=== PATIENT | female | born 2000 | race Caucasian/White ===

== ENCOUNTER 2024-05-31 19:54 | Emergency (ER) | payer SELFPAY ==
--- OUTSIDE RECORDS SUMMARY | 2024-05-31 19:56 | XMS_ITS | Continuity of Care Document ---
Author Name [facility] Organization [facility] Care Team Providers Care Tax Evaluator Name Role Phone [facility] Unavailable Unavailable Problems Combined list of problems from Department of Defense and Veterans Affairs facilities. It does not include entries that were removed or entered in error. 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 DoD shortness of breath Active Condition Do D visit for: administrative purpose Inactive Condition DoD dysphagia Active Condition DoD nausea Inactive Condition DoD constipation Inactive Condition DoD other specified viral disease Inactive Condition DoD visit for: examination of subpopulation Active Condition DoD Need For Vaccination Chickenpox (Active) Active Condition DoD Need For Vaccination Hepatitis A Active Condition DoD New Patient Age 5-11 School / Camp Physical Active Condition DoD Need For Vaccination Against Influenza Active Condition DoD dermatitis Inactive Condition probably due to exposure both hands. eucerin 1% H/C cream ud DoD Medications Combined list of outpatient medications from Department of Defense and Veterans Affairs facilities.Medications provided include 1) outpatient medications from the last 15 months, and 2) patient-reported medications. Medication Details Route Status Patient Instructions Prescription Expires Prescription Number Last Dispense Date Ordering Provider Order Date Order Qty Source FLUoxetine 10 mg oral capsule FLUoxeti ne 10 mg oral capsule Start Date: 07/15/19 Status: Ordered Ordered No Facilit y Access methocarbam ol 500 mg oral tablet methocar bamol 500 mg oral tablet Start Date: 05/06/19 Status: Ordered Ordered No Facilit y Access Allergies, Adverse Reactions, Alerts Combined list of allergies from Department of Defense and Veterans Affairs facilities. It does not include entries that were removed or entered in error. Substance Category Reaction Severity Reaction type Status Date Reported Comments Source No Known Allergies Drug allergy (disorder) active 08/28/2007 April COVARRUBIAS Immunizations Combined list of available immunizations from the Department of Defense and Veterans Affairs facilities. 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 Source Hep A, ped/adol, 2 dose 2011 zzLef t Arm [id number] GlaxoSmithKli ne complet ed Hep A, ped/adol, 2 dose 01/05/12 Given Ambulat ory Pharmac y hepatitis A vaccine, pediatric/ado lescent dosage, 2 dose schedule 2 2011 MARIA DE JESUS MOSCOSO [id number] 83 Smithine (SKB) complet ed hepatitis A vaccine, pediatric /adolesce nt dosage, 2 dose schedule DoD tuberculin purified protein derivative 2011 zzLef t Arm [id number] sanofi pasteur complet ed Patient Tolerance : Negative Ambulat ory Pharmac y tuberculin skin test; purified protein derivative solution, intradermal 0 2011 MONICA THOMASIE [id number] Sanofi Pasteur ([facility]) complet ed tuberculi n skin test; purified protein derivativ e solution, intraderm al DoD Hep A, ped/adol, 2 dose 2008 zzLef t Arm [id number] 83 GlaxoSmithKli ne complet ed Hep A, ped/adol, 2 dose 05/16/09 Given Ambulat ory Pharmac y varicella virus vaccine 2008 zzLef t Arm [id number] Merck [employer] Inc complet ed varicella virus vaccine 05/16/09 Given Ambulat ory Pharmac y varicella virus vaccine 1 2008 REBECCA BUSTOS [id number] 21 Merck (MSD) complet ed varicella virus vaccine DoD hepatitis A vaccine, pediatric/ado lescent dosage, 2 dose schedule 1 2008 REBECCA BUSTOS [id number] 83 Smithine (SKB) complet ed hepatitis A vaccine, pediatric /adolesce nt dosage, 2 dose schedule DoD influenza virus vaccine,split 2006 zzLef t Arm [id number] 15 sanofi pasteur complet ed influenza virus vaccine,s plit 06/12/06 Given Ambulat ory Pharmac y influenza virus vaccine, split virus (incl. purified surface antigen)-reti red CODE 1 2006 Unknown, Provider [id number] 15 Sanofi Pasteur ([facility]) complet ed influenza virus vaccine, split virus (incl. purified surface antigen)- retired CODE DoD influenza virus vaccine, live 2005 [id number] A [employer] comple t ed influenza virus vaccine, live 05/07/06 Given Ambulat ory Pharmac y influenza virus vaccine, live, attenuated, for intranasal use 1 2005 Unknown, Provider [id number] [facility] ([facility] complet ed influenza virus vaccine, live, attenuate d, for intranasa l use [facility] Vital Signs Combined list of inpatient and outpatient Vital Signs from Department of Defense and Veterans Affairs, ranging from 12 months to all on record, depending upon the facility. Vital Sign Value Date Comments Source No data available for this section Ambulatory Pharmacy Encounters Combined list of: 1) Encounters from Department of Veterans Affairs facilities going back up to thelast 18 months. 2) Encounters from the Department of Defense facilities going back up to 280 months. Location Location Details Encounter Type Encounter Number Reason For Visit Attending Provider ADM Date DC Date Status Disposition Source [facility] [place]IENT [id number] some type of rash or somethi ng on both hands (only) JESSE ALONZO 05/04 Released w/o Limitations [facility] [place] [place]) [facility] [id number] [facility] [place] [place]) [facility] [id number] [facility] Limitations [facility] [place] [place] [place]Pediat alex [facility] OUTPATIENT [id number] BEBA Dickerson MD 05/16 Released w/o Limitations [facility] [place] ) [facility] [place] OUTPATIENT [id number] [facility] JARROD Carter 05/29 Released w/o Limitations [facility] [place]([facility] JOHN PAUL Chambers([facility] F01[facility] [place]) OUTPATIENT [id number] ([phone]) stomach pain,na usea,he adaches x1wk SAVANNAHNICHOLASTAYE SCOTT M 09/12 [facility]ased w/o Limitations [facility] [place] [place] [facility] [place] PAUL Crocker([facility]) OUTPATIENT [id number] constip ated MIKE CLEARY 09/15 Released w/o Limitations [facility] [place] [facility] Conrad young [place] [place]) OUTPATIENT [id number] NAUSEA/ STOMACH E EVLEYN DELGADO 10/07 Released w/o Limitations [facility] [place] [place] [place] [facility] JOHN PAUL Crocker([facility] F01[facility] [place]) OUTPATIENT [id number] f/u meds [id number] EVELYN DELGADO 10/23 Released w/o Limitations [facility] [place] [place] [facility] JOHN PAUL Crocker([facility] F01[facility] [place]) OUTPATIENT [id number] F/U STOMACH ISSUES EVELYN DELGADO 11/12 Released w/o Limitations [facility] [place] [place] [facility] JOHN PAUL Crocker([facility] P01A [place]) OUTPATIENT [id number] N/P Peds GI SALLY RICHARDS 12/17 Released w/o Limitations [facility] [place] [place] [place] [facility] JOHN PAUL Crocker([facility] P01A [place]) TELE CONSULT [id number] GI biopsy results PAYNEJACIMARTAMEENA MARSAN 01/10 [facility] [place] [place] [facility] JOHN PAUL Crocker([facility] P01A [place]) OUTPATIENT [id number] follow up JOHN DEL VALLE 02/27 Released w/o Limitations [facility] [place] [place] [place] [facility] JOHN PAUL Sanderson([facility] F01A [place]) OUTPATIENT [id number] ([phone] MOP concern s with not eating/ taking deep breaths EVELYN DELGADO 06/19 Released w/o Limitations [facility] JOHN PAUL Acevedo([facility] F01A [place]) [facility] JOHN PAUL Sanderson([facility] F[facility] [place]) TELE CONSULT [id number] Vaginal Irritat ion BEION, JALEEL L 12/08 [facility] JOHN PAUL Acevedo([facility] F01A [place]) [facility] JOHN PAUL Sanderson([facility] F01A [place]) OUTPATIENT [id number] VAGINAL IRRITAT ION DONNA EDUARDOA L 12/08 Released w/o Limitations [facility] JOHN PAUL Acevedo([facility] F01A [place]) [facility] JOHN PAUL Sanderson([facility] Immunizat ions) OUTPATIENT [id number] ppd ISABELLE THOMAS 12/11 Released w/o Limitations [facility] JOHN PAUL Acevedo([place] Immuniz ations) [facility] JOHN PAUL Sanderson([facility] F01A [place]) OUTPATIENT [id number] Sports Physica l [phone] ROSELINE FRANZ 01/01 Released w/o Limitations [facility] JOHN PAUL Acevedo([facility] F01A [place]) Procedures Combined list of: 1) Procedures from Department of Veterans Affairs facilities going back up to thelast 18 months, not all VA non-surgical procedures are included; 2) All procedures from the Department of Defense facilities. Procedure Procedure Type Code Date Perfomer Comments Sourc e No data available for this section Ambulato ry Pharmacy Skin Test Anergy Tuberculin Intradermal Skin Test Anergy Tuberculin Intradermal [id number] [facility] Patient Education Asthma Metered Dose Inhaler Patient Education Asthma Metered Dose Inhaler [address] [facility] Injection, ondansetron HCl, per 1 [address] [facility] Physician Supervised Injection Physician Supervised Injection [id number] MIKE CLEARY Infusion, normal saline solution , [address] [facility] Hep A Vac Ped/Adol Dosage (Intramusc Use) 2 Dose Schedule Hep A Vac Ped/Adol Dosage (Intramusc Use) 2 Dose Schedule 85830 BEBA RODRIGUEZ MD Immunization Administration By Injection, One Vaccine Immunization Administration By Injection, One Vaccine 24025 BEBA RODRIGUEZ MD Vaccines Viral Varicella (Active) Vaccines Viral Varicella (Active) 44762 BEBA RODRIGUEZ MD Immunization Administration By Injection, Each Additional Vaccine BEBA RODRIGUEZ MD Screening Test Of Visual Acuity, Quantitative, Bilateral Screening Test Of Visual Acuity, Quantitative, Bilateral 56262 BEBA RODRIGUEZ MD Influenza Split Virus Vaccine 0.5mL Dosage Intramuscular KRYSTA KIRKPATRICK Immunization Administration By Injection, One Vaccine Immunization Administration By Injection, One Vaccine 72789 KRYSTA KIRKPATRICK Immunization Admin By Intranasal / Oral Route One Vaccine Immunization Admin By Intranasal / Oral Route One Vaccine 23329 KRYSTA KIRKPATRICK Influenza Virus Vaccine Intranasal Live Attenuated KRYSTA KIRKPATRICK SPECIAL REPORTS SUCH INSURANCE FORMS, MORE THAN THE INFORMATION CONVEYED IN THE USUAL MEDICAL COMMUNICATIONS OR STANDARD REPORTING FORM [facility] IMMUNIZATION ADMINISTRATION (INCLUDES PERCUTANEOUS, INTRADERMAL, SUBCUTANEOUS, OR INTRAMUSCULAR INJECTIONS); 1 VACCINE (SINGLE OR COMBINATION VACCINE/TOXOID) [facility] HEPATITIS A VACCINE (HEPA), PEDIATRIC/ADOLESCE NT DOSAGE-2 DOSE SCHEDULE, FOR INTRAMUSCULAR USE [facility] IMMUNIZATION ADMINISTRATION (INCLUDES PERCUTANEOUS, INTRADERMAL, SUBCUTANEOUS, OR INTRAMUSCULAR INJECTIONS); 1 VACCINE (SINGLE OR COMBINATION VACCINE/TOXOID) [facility] IMMUNIZATION ADMINISTRATION BY INTRANASAL OR ORAL ROUTE; 1 VACCINE (SINGLE OR COMBINATION VACCINE/TOXOID) [facility] POLIOVIRUS VACCINE, INACTIVATED (IPV), FOR SUBCUTANEOUS OR INTRAMUSCULAR USE [facility] SCREENING TEST OF VISUAL ACUITY, QUANTITATIVE, BILATERAL [facility] SKIN TEST; TUBERCULOSIS, INTRADERMAL [facility] PORTABLE PEAK FLOW METER [facility] UNLISTED SPECIAL SERVICE, PROCEDURE OR REPORT 011 [facility] INJECTION, ONDANSETRON HCL, PER [address] [facility] DIPHTHERIA, TETANUS TOXOIDS, AND ACELLULAR PERTUSSIS VACCINE (DTAP), WHEN ADMINISTERED TO INDIVIDUALS YOUNGER THAN 7 YEARS, FOR INTRAMUSCULAR USE 001 DoD Social History Combined list of available smoking, tobacco, and other social history from Department of Defense and Veterans Affairs facilities. Social History Type Response Date Comment Sourc e Female 12/29/2019 Ambulatory Pha rmacy Sexual Orientation Ambula tory Pharmacy Gender identity Ambulator y Pharmacy This section is an empty soc ial history section. [facility] Assessment and Plan Combined list of future care activities from Department of Defense and Veterans Affairs facilities (e.g., assessment and plan notes, appointments, orders, and referrals). Additional future care activities may be listed in the Plan of Care section. Result Assessment and Plan Date Source Assessment and Plan No data available for this section 06/01/2024 Ambulatory Pharmacy Functional Status Combined list of recent functional and cognitive assessments recorded at Department of Defense and Veterans Affairs ([facility]).VA Functional [place] Measurement (FIM) Scale: 1 = Total Assistance (Subject = 0% +), 2 = Maximal Assistance (Subject = 25% +), 3 = Moderate Assistance (Subject = 50% +), 4 = Minimal Assistance (Subject = 75% +), 5 = Supervision, 6 = Modified [place] (Device), 7 = Complete [place] (Timely, Safely). Assessment Date/Time Source Assessment Type Assessment Skill Assessment Score Assessment Details No data available for this section
--- OUTSIDE RECORDS SUMMARY | 2024-05-31 19:56 | XMS_ITS | Clinical Summary ---
Author Organization [employer] [facility] Address [place], [place] [address] Care Team Providers Care Car Usher Name Role Phone Pcp, No Primary Care Provider Unavailabl e Allergies No known active allergies Medications SUMAtriptan (IMITREX) 25 mg tabletIndication s:Migraine without aura and without status migrainosus, not intractable Take 1-2 Tablets (25-50 mg) by mouth every 2 hours if needed for Migraine. Give at minimum 2hrs apart. Max Dose: 200mg per 24hrs. 10 Tablet 3 11/07/2022 Active naproxen (NAPROSYN) 500 mg tabletIndication s:Dysmenorrhea TAKE 1 TABLET(500 MG) BY MOUTH EVERY 12 HOURS NEEDED FOR PAIN 30 Tablet 1 07/03/2023 Active cyclobenzaprine (FLEXERIL) 10 mg tabletIndication s:Fibromyalgia TAKE 1 TABLET(10 MG) BY MOUTH AT BEDTIME 30 Tablet 1 01/19/2024 Active Active Problems Problem Noted Date Diagnosed Date Pap smear for cervical cancer screening 10/24/19 23 Overview (12/10/2022): 10/2022 NIL Plan: Pap/HPV due in 3 years Tachycardia 12/17/2021 Palpitations 12/17/2021 Other chronic pain 07/24/2020 Dysphagia 06/22/2020 Hypertrophy of vulva 06/22/2020 Anxiety 07/14/2019 Depressive disorder 12/24/2018 Fibromyalgia 12/24/2018 Chronic fatigue syndrome 07/22/2018 Immunizations Name Administration Dates Next Due DTaP 02/19/2005, 1,05/28/2000,03/19,01/20/2000 HIB-HepB (Comvax) 05/28/2000,03/19/2000,01/20/20 00 Hepatitis A (Peds) 01/05/2012,05/16/2009 Hepatitis B (Peds) 1999 Inactivated Polio Vaccine 02/19/2005,08/2000,03/19/2000,01/19 Influenza Virus, Unspecified 02/22/2018,06/12/19 07,05/07/2006 Influenza, IIV4 06/14/2021, 0,02/22/2019,02/22 Influenza, split (incl. payam fied surface antigen) 06/12/2006 MENINGOCOCCAL VACCINE 2 VIAL 2MO-55YO (MENVEO) 12/15/2016 MMR 02/19/2005,11/18/2000 Pneumococcal conj 7-Valent (Prevnar 7) 0 06/01/2001,11/18/2000,05/28/2000,03/19 Tdap 12/15/2016 Tuberculin (PPD) 12/07/2017,12/12/2011 Tuberculin Skin Test, Unspecified 12/12/2011 Varicella Vaccine 05/16/2009,11/18/2000 Family History Medical History Relation Name Comments Hyperlipidemia Father Hypertension Father Thyroid Disease Mother Relation Name Status Comments Brother Alive Father Alive Mother Alive Sister 1 Alive Sister 2 Alive Sister 3 Alive Sister 4 Alive Social History Tobacco Use Types Packs/Day Years Used Date Smoking Tobacco: Never Smokeless Tobacco: Never Tobacco Cessation:Counseling Given: Yes Alcohol Use Standard Drinks/Week Comments No 0 (1 standard drink = 0.6 oz pur e alcohol) PHQ-2 Answer Date Recorded PHQ-2 TOTAL SCORE 0 11/07/2022 Social Connections Answer Date Recorded Frequency of Communication with Friends and Fami ly Not on file 05/25/2021 Financial Resource Strain Answer Date R ecorded Difficulty of Paying Living Expenses Not on file 05/25/2021 Difficulty of Paying Living Expenses Not on file 05/25/2021 Comments No Sex and Gender Information Value Date Recorded Sex Assigned at Not on file Legal Sex Female 6:38 PM [employer] Gender Identity Not on file Sexual Orientation Not on file Obstetrics History Para Term AB IAB SAB Ectopic Multiple Livin g Live Births 0 0 0 0 0 0 0 0 0 0 0 Last Filed Vital Signs Vital Sign Reading Time Taken Comments Blood Pressure 100/70 11/07/2022 11:11 AM CDT Pulse 88 11/07/2022 11:11 AM CDT Temperature 37.2 C (98.9 F) 07/14/2019 3:04 PM [employer]ITE F[employer]RICATOR Respiratory Rate 20 11/10/2017 12:36 PM CDT Oxygen Saturation 99% 11/07/2022 11:11 AM CDT Inhaled Oxygen Concentration - - Weight 59 kg (130 lb) 11/07/2022 11:11 AM CDT Height 154.9 cm (5' 1) 11/07/2022 11:11 AM CDT Body Mass Index 24.56 11/07/2022 11:11 AM CDT Plan of Treatment Health Maintenance Due Date Last Done Comments HPV series for age 9-26 (1 - 3-dose series) 11/11/2014 BMI (ht and wt on same day) for age 18+ 11/08/2023 11/07/2022, 11/07/2022, 10/09/2021, Additional history exists Depression screening for age 12+ 11/08/2023 11/07/2022, 11/07/2022, 10/09/2021, Additional history exists COVID-19 vaccine series ( season) 2024 Influenza for age 9-49 01/24/2024 , 03/25/2020, 02/22/2019, Additional history exists Pap test for age 21-65 11/07/2025 11/07/2022 Tetanus booster 12/15/2026 12/15/2016 Pneumococcal series for age 6-49 Aged Out 06/01/2001, 11/18/2000, 05/28/2000, Additional history exists No longer eligible based on patient's age to complete this topic Tdap Completed 12/15/2016 HIV for age 15-65 Completed 05/29/2022 Hepatitis C screening for age 18-79 Completed 05/29/2022 Procedures Procedure Name Priority Date/Time Associated Diagnosis Comments ABLE SEAMAN THIN PREP PAP SCREEN IMAGED Routine 11/07/2022 12:03 PM CDT Screening for cervical cancer LC HIV-1/O/2, 4TH GENERATION Routine 05/29/2022 12:06 PM [employer]ITE F[employer]RICATOR Encounter for screening for HIV LC HCV ANTIBODY RFX TO QUANT PCR Routine 05/29/2022 12:06 PM [employer]ITE FABRICATOR Need for hepatitis C screening test from Last 3 Months or Most Recently Relevant to Health Maintenance Results * ABLE SEAMAN THIN PREP PAP SCREEN IMAGED [[id number]] (11/07/2022 12:03 PM CDT) Case Report Gynecologic Cytology Report Case: [id number] Authorizing Provider: Genesis Denton MD Collected: 11/07/2022 1203 Ordering Location: [facility] Received: 11/07/2022 1237 Clinic First Screen: Ricardo Gabriel Specimen: ABLE SEAMAN ThinPrep Vial Screening, Cervical 12/10/2022 1:05 PM CDT [facility] INTERPRETATION/ RESULT NEGATIVE FOR INTRAEPITHELIAL LESION OR MALIGNANCY (NIL) (none) 12/10/2022 1:05 PM CDT [facility] [employer] [facility] IMEN ADEQUACY Satisfactory for evaluation No endocervical component seen 12/10/2022 1:05 PM CDT [employer] [facility] EN[facility]AL LABORAT[facility] Date of LMP 10/27/2022 12/10/2022 1:05 PM CDT [facility] Last Pap Date unknown/first pap 11/22 1:05 PM CDT [facility] [employer] ENTRAL LABORATORY Last Pap Result First Pap/Unknown 1:05 PM CDT [facility] [employer] ENTRAL LABORATORY Abnormal Pap or [place] Bx in last 5 years No 12/10/2022 1:05 PM CDT [facility] Menstrual Status Regular Periods 12/10/2022 1:05 PM CDT [facility] [place] Bx Done Today No 12/10/2022 1:05 PM CDT [facility] [employer] EN[facility]AL [facility] Additional Information None given 12/10/2022 1:05 PM CDT [facility] Comment: Cytology is screened at [facility] - [address], [place] [address] and [facility] - [address], [place] [address] and [facility] - [address] [place] [address] Interpreted at [facility] - [address], [place] [address] Automated Review Successful 12/10/2022 1:05 PM CDT [facility] Comment:Specimen processed s uccessfully by automated patternmaker all around device, [employer] System, [employer] Note The pap test is a screening technique, not a diagnostic procedure. It is used primarily to screen for squamous cancers and precursor lesions. Published studies have shown that it is subject to both false negative and false positive results. The pap test should not be used as the sole means to diagnose or exclude pre-malignant and malignant lesions. 12/10/2022 1:05 PM CDT [facility] Other (Cervical) Non-Blood / Unknown 11/07/2022 12:03 PM CDT 11/07/2022 12:37 PM CDT us Genesis Denton MD PATHOLOGY/CYTOLOGY Final Re sult [facility] [address] [place] [address], [place] * LC HCV ANTIBODY RFX TO QUANT PCR (05/29/2022 12:06 PM B[employer] COMPOSITE FABRICATOR) HCV Ab <0.1 0.0 - 0.9 s/co ratio 06/01/2022 5:39 AM B[employer]ING [employer] COMPOSITE FABRICATOR [facility]) Blood BLOOD SPECIMEN / Unknown Butterfly / Unknown 05/29/2022 12:06 PM [employer]ITE FABRICATOR 05/29/2022 12:10 PM [employer]ING [employer] COMPOSITE FABRICATOR Narrative [facility] ([facility]) - 06/01/2022 5:39 AM B[employer]ING AND COMPOSITE FABRICATOR Performed at: [address] [place] [id number] Director Call Center Sales: Sreekanth Mcbride MD, Phone: [phone] us [facility] Final Resu lt Performing Organization Address [facility] Co de Phone Number [facility] ([facility]) [address] [place] [address], * LC HIV-1/O/2, 4TH GENERATION (05/29/2022 12:06 PM B[employer] COMPOSITE FABRICATOR) HIV Scr 4th Gen Non Reactive Non Reactive 06/01/2022 10:07 AM BONDING AND COMPOSITE FABRICATOR [facility] ([facility]) Comment: HIV Negative HIV-1/HIV-2 antibodies and HIV-1 p24 antigen were NOT detected. There is no laboratory evidence of HIV infection. Blood BLOOD SPECIMEN / Unknown Butterfly / Unknown 05/29/2022 12:06 PM B[employer]ING [employer] COMPOSITE FABRICATOR 05/29/2022 12:10 PM B[employer]ING AND COMPOSITE FABRICATOR Narrative [facility] ([facility]) - 06/01/2022 10:07 AM B[employer]ING AND COMPOSITE FABRICATOR Performed at: [address] [place] [id number] Director Call Center Sales: Sreekanth Mcbride MD, Phone: [phone] us [facility] Final Resu lt Performing Organization Address [facility]/ZIP Co de Phone Number [facility] ([facility]) [address] [place] [address], from Last 3 Months or Most Recently Relevant to Health Maintenance Care Teams Car Usher Relationship Specialty Start Date End Date Pcp, No . PCP - General 07/16/22
[2024-05-31 20:09] VITALS: BP 129/95; PULSE 129; RESP 20; TEMP 37.7; O2SAT 98; BMI 28.3
--- NOTE | 2024-05-31 20:44 | ED_ITS ---
HPI - Arrhythmia/Palpitations General Chief Complaint: Arrhythmia/Palpitations Stated Complaint: fast heart rate Time Seen by Provider: 05/31/24 20:22 History of Present Illness HPI narrative: This 23-year-old female comes in reporting rather sudden onset of tachycardia that occurred prior to arrival. She states that she was sitting at home and felt her heart going fast and she reported some lightheadedness and mild shortness of breath and some mild chest tightness. She measured her heart rate at 165. Since then it has been slowly coming down. She did feel jittery and somewhat anxious also during this time. She does not report similar symptoms like this in the past. She has otherwise been in good health. Related Data Allergies Allergy/AdvReac Type Severity Reaction Status Date / Time No Known Drug Allergies Allergy Verified 05/31/24 20:17 Review of Systems Status of ROS: Reports: 10 or more systems reviewed and unremarkable except as noted in History and below Narrative: Constitutional: No fevers, no weight gain or loss. Eyes: No discharge. No vision changes. HENT: No congestion, no sore throat, no ear pain. Cardiovascular: She reports rapid heart rate with some associated chest tightness. Respiratory: No shortness of breath, no wheezes, no cough. Gastrointestinal: No abdominal pain, no vomiting, no diarrhea. Genitourinary: No dysuria, no hematuria. Musculoskeletal: Normal range of motion. Skin: No rashes, no pruritis. Neurological: No dizziness, weakness, sensory change, speech change. Endo/Heme/Allergies: No bruising or bleeding. No polydipsia. Pysch: no suicidality, no anxiety, no insomnia. All other systems reviewed and are negative. Exam Narrative: Exam Narrative: Constitutional: Well-developed, well-nourished, no acute distress. HEENT: Normocephalic, atraumatic. Neck: Normal range of motion. Nontender. Supple. Heart: Regular. No murmurs. Tachycardia. Intact distal pulses. Lungs: Clear to auscultation. No chest discomfort. No wheezes, rhonchi, or rales. Abdomen: Normal bowel sounds. Nontender. No rebound tenderness. Genitalia: Deferred. Back: No midline tenderness. Normal range of motion. Extremities: Normal range of motion. No injury. Skin: Intact. No rash. Warm. No erythema or pallor. Neurologic: No altered sensation. No weakness. Alert and oriented. Psychiatric: No suicidality. No anxiety or depression. No insomnia. Nursing notes and vitals signs are reviewed. Const: Vital Signs, click to edit/add: Vital Signs - 24 hr 05/31/24 20:09 Temperature 99.9 F H Pulse Rate [Pulse Oximeter] 129 H Respiratory Rate 20 Blood Pressure [Ri ght Upper Arm] 129/95 H Pulse Oximetry 98 Oxygen Delivery Me thod Room Air Course Vital Signs Vital signs: Initial Vital Signs Temperature 99.9 F H 05/31/24 20:09 Temperature Source Temporal Artery Scan 05/31/24 20:09 Pulse Rate 129 H 05/31/24 20:09 Pulse Rhythm Regular 05/31/24 20:09 Respiratory Rate 20 05/31/24 20:09 Blood Pressure 129/95 H 05/31/24 20:09 Blood Pressure Mean 106 H 05/31/24 20:09 Blood Pressure Position Sitting 05/31/24 20:09 Pulse Oximetry 98 05/31/24 20:09 Oxygen Delivery Method Room Air 05/31/24 20:09 Vital Signs Temperature 99.9 F H 05/31/24 20:09 Pulse Rate 129 H 05/31/24 20:09 Respiratory Rate 20 05/31/24 20:09 Blood Pressure 129/95 H 05/31/24 20:09 Pulse Oximetry 98 05/31/24 20:09 Oxygen Delivery Method Room Air 05/31/24 20:09 Temperature 99.9 F H 05/31/24 20:09 Pulse Rate 129 H 05/31/24 20:09 Respiratory Rate 20 05/31/24 20:09 Blood Pressure 129/95 H 05/31/24 20:09 Pulse Oximetry 98 05/31/24 20:09 Oxygen Delivery Method Room Air 05/31/24 20:09 MDM - Arrhythmia/Palpitations MDM Narrative Medical decision making narrative: This patient comes in reporting increased heart rate that started rather spontaneously prior to arrival. She measured heart rate around 165 beats per minute. Upon arrival here she was at around 130 beats per minute but this dissipated over time to wear at the end of her visit here her heart rate was around 90 beats per minute. EKG is obtained and shows no other findings besides sinus tachycardia. Lab results also were obtained with normal results. I did also use bedside ultrasound to evaluate her heart. The patient is reassured with these findings. I describe signs and symptoms that would indicate need for return and re-evaluation. Lab Data Labs: Lab Results 05/31/24 05/31/24 Range/Units 20:43 21:12 WBC 11.84 H (4.50-11.00) K/uL RBC 5.08 (4.00-5.20) m/uL Hgb 14.6 (12.0-16.0) gm/dL Hct 43.7 (33.0-51.0) % MCV 86 (80-100) fL MCH 29 (26-34) pg MCHC 33 (32-36) gm/dL RDW Coeff of Horacio 12.0 (11.5-15.5) % Plt Count 351 (140-440) K/uL Neut % (Auto) 73.8 H (42.0-72.0) % Lymph % (Auto) 18.9 L (20-44) % [place] % (Auto) 5.9 (0.0-11.0) % Eos % (Auto) 0.9 (0.0-7.0) % Baso % (Auto) 0.3 (0.0-3.0) % Neut # (Auto) 8.70 H (1.7-7.0) K/uL Lymph # (Auto) 2.20 (0.90-2.90) K/uL Independence # (Auto) 0.70 (0.00-0.90) K/UL Eos # (Auto) 0.10 (0.00-0.50) K/uL Baso # (Auto) 0.00 (0.00-0.30) K/uL Abs Immat Gran (auto) 0.00 (0.00-0.30) K/uL Imm/Tot Granulo (auto) 0.2 % Sodium 136 (135-149) mmol/L Potassium 3.7 (3.6-5.1) mmol/L Chloride 102 (96-114) mmol/L Carbon Dioxide 24 (20-32) mmol/L Anion Gap 10 (7-15) mEq/L BUN 19 (5-24) mg/dL Creatinine 0.6 (0.5-1.5) mg/dL Estimated Creat Clear 109.10 Estimated GFR 128 ml/min Glucose 103 (60-115) mg/dL Calcium 9.1 (8.4-10.6) mg/dL POC Troponin I 0.00 L (0.01-0.04) ng/ml ECG Data Attestation: I personally reviewed and interpreted this ECG as follows: Interpretation: Sinus tachycardia, rate 112 beats per minute. There are no specific ST or T- wave abnormalities. Discharge Plan Discharge Clinical Impression: Sinus tachycardia Patient Disposition: Home, Self-Care Condition: Improved Additional Instructions: Continue current plans. Follow up with MD return if worsening. Follow Up/Referrals: Meche Sharp PA-C [Referring] - Stand Alone Forms: [facility] Info Instructions Procedures Ultrasound Cardiac exam #1: Anatomical areas examined: parasternal long and parasternal short Indications: other Exam type: limited transthoracic echocardiogram Impression: negative exam
[2024-05-31 21:26] LABS: Basophils Percent Auto 0.3 % (0.0-3.0); Eosinophils Percent Auto 0.9 % (0.0-7.0); Hematocrit 43.7 % (33.0-51.0); Hemoglobin* 14.6 gm/dL (12.0-16.0); Immature Granulocytes Pct Auto 0.2 %; Lymphocytes Percent Auto 18.9 % (20-44); Mean Corpuscular HGB Conc 33 gm/dL (32-36); Mean Corpuscular Hemoglobin 29 pg (26-34); Mean Corpuscular Volume 86 fL (80-100); Monocytes Percent Auto 5.9 % (0.0-11.0); Neutrophils Percent Auto 73.8 % (42.0-72.0); Platelet Count* 351 K/uL (140-440); Red Blood Count 5.08 m/uL (4.00-5.20); White Blood Count* 11.84 K/uL (4.50-11.00)
--- OUTSIDE RECORDS SUMMARY | 2024-05-31 21:31 | XMS_ITS | Continuity of Care Document ---
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 purified surface antigen)-reti red CODE 1 2006 Unknown, Provider [id number] 15 Sanofi Pasteur ([facility]) complet ed influenza virus vaccine, split virus (incl. purified surface antigen)- retired CODE DoD influenza virus vaccine, live 2005 [id number] [employer] comple t ed influenza virus vaccine, live 05/07/06 Given Ambulat ory Pharmac y influenza virus vaccine, live, attenuated, for intranasal use 1 2005 Unknown, Provider [id number] [employer] ([facility]) complet ed influenza virus vaccine, live, attenuate d, for intranasa l use [facility] Vital Signs Combined list of inpatient and [...] ADM Date DC Date Status Disposition Source [facility] [place]IENT [id number] some type of rash or somethi ng on both hands (only) JESSE ALONZO 05/04 Released w/o Limitations [facility] [place] [place] [facility] [place]) [facility] [id number] [facility]07 [facility] Limitations [facility] [place] [facility] [place]) [facility] [id number] [facility] James 06/12 Released w/o Limitations [facility] [place] [facility] [place] OUTPATIENT [id number] BEBA Dickerson MD 05/16 [facility]ased w/o Limitations [facility] [place] ) [facility] [place] OUTPATIENT [id number] [facility] sep 10 school JARROD Carter 05/29 Released w/o Limitations [facility] [place]([facility]) JOHN PAUL Chambers([facility] F[facility]A [place]) OUTPATIENT [id number] ([phone]) stomach pain,na usea,he adaches x1wk SAVANNAHNICHOLASTAYE SOCTT M 09/12 [facility]ased w/o Limitations [facility] [place] [place] [facility] JOHN PAUL Crocker([facility]) OUTPATIENT [id number] constip ated MIKE CLEARY 09/15 Released w/o Limitations [facility] [place] [facility] [place] [facility] Conrad young [place] F01A [place] OUTPATIENT [id number] NAUSEA/ STOMACH E EVELYN DELGADO 10/07 Released w/o Limitations [facility] [place] F[place] [facility] JOHN PAUL Crocker([facility] F01A [place]) OUTPATIENT [id number] f/u meds [phone] EVELYN DELGADO 10/23 Released w/o Limitations [facility] [place] [facility] JOHN PAUL Crocker([facility] F01A [place]) OUTPATIENT [id number] F/U STOMACH ISSUES EVELYN DELGADO 11/12 Released w/o Limitations [facility] [place] [facility] JOHN PAUL Crocker([facility] P01A [place]) OUTPATIENT [id number] N/P Peds GI SALLY RICHARDS 12/17 Released w/o Limitations [facility] [place] [place] [facility] JOHN PAUL Crocker([facility] P01A [place]) TELE CONSULT [id number] GI biopsy results PAYNEJACIMARTAMEENA MARSAN 01/10 [facility] [place] [facility] JOHN PAUL Crocker([facility] P01A [place]) OUTPATIENT [id number] follow up JOHN DEL VALLE 02/27 Released w/o Limitations [facility] [place] [facility] JOHN PAUL Sanderson([facility] F01A [place]) OUTPATIENT [id number] ([phone] MOP concern s with not eating/ taking deep breaths EVELYN DELGADO 06/19 Released w/o Limitations [facility] [place], JOHN PAUL([facility] F01A [place]) [facility] JOHN PAUL Sanderson([facility] F01A [place]) TELE CONSULT [id number] Vaginal Irritat ion BEION, JALEEL L 12/08 [facility] JOHN PAUL Acevedo(AM[facility] F01A [place]) [facility] JOHN PAUL Sanderson([facility] F01A [place]) OUTPATIENT [id number] VAGINAL IRRITAT ION DONNA EDUARDOA L 12/08 Released w/o Limitations [facility] JOHN PAUL Acevedo([facility] F01A [place]) [facility] JOHN PAUL Sanderson(Bach Immunizat ions) OUTPATIENT [id number] ppd ISABELLE THOMAS 12/11 Released w/o Limitations [facility] JOHN PAUL Acevedo(Bach Immuniz ations) [facility] JOHN PAUL Sanderson([facility] F01A [place]) OUTPATIENT [id number] Sports Physica l [phone] ROSELINE FRANZ 01/01 Released w/o Limitations [facility] JOHN PAUL Acevedo([facility] F01A [place]) Procedures Combined list of: 1) Procedures from Department of Veterans Affairs facilities going back up to thelast 18 months, not all VA non-surgical procedures are included; 2) All procedures from the Department of Defense facilities. Procedure Procedure Type Code Date Perfomer Comments Sourc e Skin Test Anergy Tuberculin Intradermal Skin Test Anergy Tuberculin Intradermal 48382 ISABELLE CARTER Patient Education Asthma Metered Dose Inhaler Patient Education Asthma Metered Dose Inhaler 88939 JB VIDAL [facility] Injection, ondansetron HCl, per 1 mg 011 MIKE CLEARY [facility] Physician Supervised Injection Physician Supervised Injection 99382 011 MIKE CLEARY Infusion, normal saline solution , 1000 cc 011 MIKE CLEARY Hep A Vac Ped/Adol Dosage (Intramusc Use) 2 Dose Schedule Hep A Vac Ped/Adol Dosage (Intramusc Use) 2 Dose Schedule 21895 BEBA RODRIGUEZ MD Immunization Administration By Injection, One Vaccine Immunization Administration By Injection, One Vaccine 18306 BEBA RODRIGUEZ MD Vaccines Viral Varicella (Active) Vaccines Viral Varicella (Active) 09773 BEBA RODRIGUEZ MD Immunization Administration By Injection, Each Additional Vaccine BEBA RODRIGUEZ MD Screening Test Of Visual Acuity, Quantitative, Bilateral Screening Test Of Visual Acuity, Quantitative, Bilateral 24940 BEBA RODRIGUEZ MD Influenza Split Virus Vaccine 0.5mL Dosage Intramuscular KRYSTA KIRKPATRICK Immunization Administration By Injection, One Vaccine Immunization Administration By Injection, One Vaccine 20383 KRYSTA KIRKPATRICK Immunization Admin By Intranasal / Oral Route One Vaccine Immunization Admin By Intranasal / Oral Route One Vaccine 02443 KRYSTA KIRKPATRICK Influenza Virus Vaccine Intranasal Live Attenuated KRYSTA KIRKPATRICK SPECIAL REPORTS SUCH INSURANCE FORMS, MORE THAN THE INFORMATION CONVEYED IN THE USUAL MEDICAL COMMUNICATIONS OR STANDARD REPORTING FORM [facility] IMMUNIZATION ADMINISTRATION (INCLUDES PERCUTANEOUS, INTRADERMAL, SUBCUTANEOUS, OR INTRAMUSCULAR INJECTIONS); 1 VACCINE (SINGLE OR COMBINATION VACCINE/TOXOID) [facility] HEPATITIS A VACCINE (HEPA), PEDIATRIC/ADOLESCE NT DOSAGE-2 DOSE SCHEDULE, FOR INTRAMUSCULAR USE [facility] IMMUNIZATION ADMINISTRATION (INCLUDES PERCUTANEOUS, INTRADERMAL, SUBCUTANEOUS, OR INTRAMUSCULAR INJECTIONS); 1 VACCINE (SINGLE OR COMBINATION VACCINE/TOXOID) [facility] IMMUNIZATION ADMINISTRATION BY INTRANASAL OR ORAL ROUTE; 1 VACCINE (SINGLE OR COMBINATION VACCINE/TOXOID) [facility] POLIOVIRUS VACCINE, INACTIVATED (IPV), FOR SUBCUTANEOUS OR INTRAMUSCULAR USE [facility] SCREENING TEST OF VISUAL ACUITY, QUANTITATIVE, BILATERAL DoD SKIN TEST; TUBERCULOSIS, INTRADERMAL [facility] PORTABLE PEAK FLOW METER [facility] UNLISTED SPECIAL SERVICE, PROCEDURE OR REPORT DoD INJECTION, ONDANSETRON HCL, PER 1 MG DoD DIPHTHERIA, TETANUS TOXOIDS, AND ACELLULAR PERTUSSIS VACCINE (DTAP), WHEN ADMINISTERED TO INDIVIDUALS YOUNGER THAN 7 YEARS, FOR INTRAMUSCULAR USE 001 [facility] No data available for this section Ambulato ry Pharmacy Social History Combined list of available smoking, tobacco, and other social history from Department of Defense and Veterans Affairs facilities. Social History Type Response Date Comment Sourc e Female 12/29/2019 Ambulatory Pha rmacy This section is an empty soc ial history section. [facility] Sexual Orientation Ambula tory Pharmacy Gender identity Ambulator y Pharmacy Assessment and Plan Combined list of future [...] of Defense and Veterans Affairs (VA).VA Functional Pryor Measurement (FIM) Scale: 1 = Total Assistance (Subject = 0% +), 2 = Maximal Assistance (Subject = 25% +), 3 = Moderate Assistance (Subject = 50% +), 4 = Minimal Assistance (Subject = 75% +), 5 = Supervision, 6 = Modified Pryor (Device), 7 = Complete Pryor (Timely, Safely). Assessment Date/Time Source Assessment Type Assessment Skill Assessment Score Assessment Details No data available for this section
--- OUTSIDE RECORDS SUMMARY | 2024-05-31 21:32 | XMS_ITS | Clinical Summary ---
Author Organization [facility] Address [place], [place] [address] Care Team Providers Care Freight Conductor Name Role Phone Pcp, No Primary Care [...] on file Legal Sex Female 6:38 PM INTERNET ARCHITECT Gender Identity Not on file Sexual Orientation [...] 37.2 C (98.9 F) 07/14/2019 3:04 PM INTERNET ARCHITECT Respiratory Rate 20 11/10/2017 12:36 PM CDT [...] Procedure Name Priority Date/Time Associated Diagnosis Comments PIPE LAYER THIN PREP PAP SCREEN IMAGED Routine 11/07/2022 12:03 PM CDT Screening for cervical cancer LC HIV-1/O/2, 4TH GENERATION Routine 05/29/2022 12:06 PM INTERNET ARCHITECT Encounter for screening for HIV LC HCV ANTIBODY RFX TO QUANT PCR Routine 05/29/2022 12:06 PM INTERNET ARCHITECT Need for hepatitis C screening test from Last 3 Months or Most Recently Relevant to Health Maintenance Results * PIPE LAYER THIN PREP PAP SCREEN IMAGED [[id number]] (11/07/2022 12:03 PM CDT) Case Report Gynecologic Cytology Report Case: [id number] Authorizing Provider: Genesis Denton MD Collected: 11/07/2022 1203 Ordering Location: [facility] Received: 11/07/2022 1237 Clinic First Screen: Ricardo Gabriel Specimen: PIPE LAYER ThinPrep Vial Screening, Cervical 12/10/2022 1:05 PM CDT [facility] INTERPRETATION/ RESULT NEGATIVE FOR INTRAEPITHELIAL LESION OR MALIGNANCY (NIL) (none) 12/10/2022 1:05 PM CDT [facility] [employer] ENTRAL LABORATORY IMEN ADEQUACY Satisfactory for evaluation No endocervical component seen 12/10/2022 1:05 PM CDT [facility]ORATORY-C ENTRAL LABORATORY Date of LMP 10/27/2022 12/10/2022 1:05 PM CDT [facility]-C ENTRAL LABORATORY Last Pap Date unknown/first pap 11/22 1:05 PM CDT [facility] [employer] ENTRAL LABORATORY Last Pap Result First Pap/Unknown 1:05 PM CDT [facility] [employer] ENTRAL LABORATORY Abnormal Pap or [place] Bx in last 5 years No 12/10/2022 1:05 PM CDT [facility] Menstrual Status Regular Periods 12/10/2022 1:05 PM CDT [facility] [place] Bx Done Today No 12/10/2022 1:05 PM CDT [facility] ENTRAL LABORAT[facility] Additional Information None given 12/10/2022 1:05 PM CDT [facility] Comment: Cytology is screened at [facility] - [address], [place] [address] and [facility] - [address], [place] [address] and [facility] - [address] [place] [address] Interpreted at [facility] - [address], [place] [address] Automated Review Successful 12/10/2022 1:05 PM CDT [facility] Comment:Specimen processed s uccessfully by automated eligibility and occupancy interviewer device, [employer] Interactive[employer] Imaging System, [employer] Note The pap test is a [...] and malignant lesions. 12/10/2022 1:05 PM CDT [facility] Other (Cervical) Non-Blood / Unknown 11/07/2022 12:03 PM CDT 11/07/2022 12:37 PM CDT us Genesis Denton MD PATHOLOGY/CYTOLOGY Final Re sult [facility] [address] [place] [address], [place] * LC HCV ANTIBODY RFX TO QUANT PCR (05/29/2022 12:06 PM INTERNET ARCHITECT) HCV Ab <0.1 0.0 - 0.9 s/co ratio 06/01/2022 5:39 AM INTERNET ARCHITECT [facility]) Blood BLOOD SPECIMEN / Unknown Butterfly / Unknown 05/29/2022 12:06 PM INTERNET ARCHITECT 05/29/2022 12:10 PM INTERNET ARCHITECT Narrative [facility]) - 06/01/2022 5:39 AM INTERNET ARCHITECT Performed at: [address] [place] [address] [id number] Machine Printer Hose: Sreekanth Mcbride MD, Phone: [phone] us [facility] Final Resu lt Performing Organization Address [facility] Co de Phone Number [facility] ([facility]) [address] [place] [address], * LC HIV-1/O/2, 4TH GENERATION (05/29/2022 12:06 PM INTERNET ARCHITECT) HIV Scr 4th Gen Non Reactive Non Reactive 06/01/2022 10:07 AM INTERNET ARCHITECT [facility] ([facility]) Comment: HIV Negative HIV-1/HIV-2 antibodies and HIV-1 p24 antigen were NOT detected. There is no laboratory evidence of HIV infection. Blood BLOOD SPECIMEN / Unknown Butterfly / Unknown 05/29/2022 12:06 PM INTERNET ARCHITECT 05/29/2022 12:10 PM INTERNET ARCHITECT Narrative [facility] ([facility]) - 06/01/2022 10:07 AM INTERNET ARCHITECT Performed at: [address] [place] [address] [id number] Machine Printer Hose: Sreekanth Mcbride MD, Phone: [phone] us [facility] Final Resu lt Performing Organization Address [facility]/ZIP Co de Phone Number [facility] ([facility]) [address] [place] [address], from Last 3 Months or Most Recently Relevant to Health Maintenance Care Teams Freight Conductor Relationship Specialty Start Date End Date Pcp, No . PCP - General 07/16/22
[2024-05-31 22:15] LABS: Slide Review Reflex No
[2024-05-31 22:44] LABS: Chloride* 102 mmol/L (96-114); Potassium* 3.7 mmol/L (3.6-5.1); Sodium* 136 mmol/L (135-149)
[2024-05-31 22:47] LABS: Anion Gap 10 mEq/L (7-15); Blood Urea Nitrogen* 19 mg/dL (5-24); Carbon Dioxide* 24 mmol/L (20-32); Creatinine* 0.6 mg/dL (0.5-1.5); Estimated Glomerular Filt Rate 128 ml/min
[2024-05-31 22:48] LABS: Calcium* 9.1 mg/dL (8.4-10.6); Glucose* 103 mg/dL (60-115)
== END 2024-05-31 23:32 | disposition home or self-care (01) ==
PROVIDERS: Emergency Provider Emergency Medicine Emergency Medical Services
DX: R00.0 Tachycardia, unspecified (principal)
CPT/HCPCS: 36415; 80048; 84484; 85025; 93005; 93308; 99284